=== PATIENT | male | born 1995 | race African-American/Black ===

== ENCOUNTER 2021-02-02 09:31 | Emergency (ER) | payer SELFPAY ==
[2021-02-02 10:54] LABS: BASOPHIL 0.3 % (0-2); EOSINOPHIL 4.4 % (0-5); HCT 44.2 % (42.0-52.0); HGB 14.9 g/dl (13.2-18.0); LYMPHOCYTE 26.4 % (15-48); MCH 28.4 pg (25.0-31.0); MCHC 33.7 g/dL (32.0-36.0); MCV 84.2 fL (78.0-100.0); MPV 11.2 fL (6.0-9.5); NEUTROPHIL 57.6 % (41-80); NRBC 0; PLT 195 K/uL (150-400); RBC 5.25 M/uL (4.70-6.00); RDW 12.2 % (11.5-14.0); WBC 6.8 K/uL (4.0-10.5)
[2021-02-02 10:55] LABS: BILIRUBIN NEGATIVE (NEGATIVE); BLOOD NEGATIVE Ery/uL (NEGATIVE); CLARITY CLEAR (CLEAR); COLOR YELLOW (YELLOW); GLUCOSE (U) NORMAL (NORMAL); LEUKOCYTES NEGATIVE Leu/uL (NEGATIVE); NITRITE NEGATIVE (NEGATIVE); PROTEIN NEGATIVE (NEGATIVE); SPECIFIC GRAVITY 1.015 (1.001-1.030); UROBILINOGEN 0.2 mg/dL (0.2-1.0); pH 6.5 (5.0-9.0)
[2021-02-02 11:05] LABS: ALBUMIN 3.7 g/dL (3.4-5.0); BILIRUBIN - TOTAL 0.6 mg/dL (0.2-1.0); BUN/CREAT RATIO (CALC) 6.7 RATIO; CREATININE 1.19 mg/dL (0.67-1.17); GLOBULIN (CALCULATION) 3.4 g/dL; POTASSIUM 4.5 mmol/L (3.5-5.1); TOTAL PROTEIN 7.1 g/dL (6.4-8.2)
[2021-02-02] MEDS ORDERED: BENTYL10 MG PO (13:48)
[2021-02-02] MEDS ORDERED: ONDANSETRON ODT4 MG PO (13:48)
[2021-02-02] MEDS ORDERED: PEPCID AC20 MG PO (13:48)
== END 2021-02-02 14:00 | disposition home or self-care (01) ==
LOC: FER 09:31
PROVIDERS: Emergency Medicine
DX: R10.84 Generalized abdominal pain (principal); R11.10 Vomiting, unspecified; Z20.822 Contact with and (suspected) exposure to COVID-19
CPT/HCPCS: 36415; 80053; 81003; 82150; 83690; 85025; J1885; J2405; J7030; Q9967; U0002